=== PATIENT | male | born 2000 | race African-American/Black ===

== ENCOUNTER 2021-03-07 00:21 | Emergency (ER) | payer OTHER ==
[2021-03-07] MEDS ORDERED: Bacitracin 1 PK ONE (01:11)
[2021-03-07] MEDS ORDERED: Ibuprofen 800 MG TAB ONE (01:11)
[2021-03-07] MEDS ORDERED: Lidocaine 1% w/Epinephrine 1:100K 20 ML VIAL ONE (01:11)
[2021-03-07] MEDS ORDERED: Boostrix 0.5 ML (Tdap) VIAL ONE (01:11)
== END 2021-03-07 03:56 ==
LOC: MADERS 00:21
DX: S01.111A Laceration without foreign body of right eyelid and periocular area, initial encounter (principal); S09.90XA Unspecified injury of head, initial encounter; I10 Essential (primary) hypertension; W01.0XXA Fall on same level from slipping, tripping and stumbling without subsequent striking against object, initial encounter
CPT/HCPCS: 12013; 70450; 71045; 72125; 90471; 90715; 93005